=== PATIENT | male | born 1985 | race Caucasian/White ===

== ENCOUNTER 2017-08-18 20:34 | Emergency (ER) | payer BC ==
[2017-08-18] MEDS ORDERED: Bacitracin Zinc 1 Packet ONE (20:53)
== END 2017-08-18 21:07 | disposition home or self-care (01) ==
LOC: SCSER 20:34
DX: S61.002A Unspecified open wound of left thumb without damage to nail, initial encounter (principal); F17.220 Nicotine dependence, chewing tobacco, uncomplicated; F41.9 Anxiety disorder, unspecified; Z79.899 Other long term (current) drug therapy; W26.0XXA Contact with knife, initial encounter
CPT/HCPCS: 99282